=== PATIENT | male | born 1990 | race Caucasian/White ===

== ENCOUNTER 2017-09-08 13:15 | Emergency (ER) | payer BC ==
[~2017-09-08] VITALS: Ht 175.3 cm; Wt 84.0 kg
[2017-09-08] MEDS ORDERED: ONDANSETRON HCL 4MG/2ML VIAL IV STA (14:15)
[2017-09-08] MEDS ORDERED: SODIUM CHLORIDE 0.9% 1,000 ML IV ONE (14:15)
[2017-09-08] MEDS ORDERED: KETOROLAC 30MG/ML VIAL IV STA (14:15)
[2017-09-08] MEDS ORDERED: KETOROLAC 30MG/ML VIAL ONE (14:25)
[2017-09-08 14:34] LABS: BASOPHILS % 0.1 % (0.0-2.0); EOSINOPHILS % 0.4 % (0.0-5.0); HEMATOCRIT. 44.4 % (42.0-52.0); HEMOGLOBIN. 15.2 g/dL (14.0-18.0); MEAN CORPUSCULAR HEMOGLOBIN 28.3 pg (28.0-32.0); MEAN CORPUSCULAR VOLUME 82.6 fL (80.0-94.0); MEAN PLATELET VOLUME 7.8 fl (7.4-10.4); MONOCYTES % 4.8 % (2.0-8.0); NEUTROPHILS % 85.7 % (40.0-76.0); PLATELET 273 x1000/uL (130-400); RED BLOOD CELL COUNT 5.38 mill/uL (4.7-6.1); RED CELL DISTRIBUTION WIDTH 12.7 % (11.6-14.6)
[2017-09-08 14:41] LABS: INR 1.1; PROTHROMBIN TIME 11.2 sec (9.4-11.6)
[2017-09-08 14:42] LABS: CHLORIDE 104 mEq/L (98-107)
[2017-09-08 15:04] LABS: CLARITY URINE CLEAR (CLEAR); COLOR URINE YELLOW (YELLOW); KETONES URINE 3+ (NEGATIVE); LEUKOCYTE ESTERASE URINE NEGATIVE (NEGATIVE); NITRITE URINE NEGATIVE (NEGATIVE); OCCULT BLOOD URINE 2+ (NEGATIVE); PH URINE 8.5 (4.5-8.0); PROTEIN URINE 1+ (NEGATIVE); SPECIFIC GRAVITY URINE 1.029 (1.005-1.030); UROBILINOGEN URINE 0.2 E.U./dL (0.2-1.0)
[2017-09-08] MEDS ORDERED: LIDOCAINE HCL 1% 20ML VIAL (Pyxis) INJ INFIL ONE (16:15)
[2017-09-08] MEDS ORDERED: CEFTRIAXONE SODIUM 250 MG/VIAL IM ONE (16:15)
[2017-09-08] MEDS ORDERED: AZITHROMYCIN 500 MG TABLET PO ONE (16:15)
[2017-09-08] MEDS ORDERED: LIDOCAINE HCL/PF 1% 10 MG/ML 5ML VIAL IJ ONE (16:30)
[2017-09-08 16:49] VITALS: BP 115/59
== END 2017-09-08 16:52 | disposition home or self-care (01) ==
LOC: ER 13:40
DX: N30.90 Cystitis, unspecified without hematuria (principal); F12.10 Cannabis abuse, uncomplicated
CPT/HCPCS: 36415; 74176; 80053; 81003; 83690; 85025; 85610; 96361; 96372; 96374; 96375; 99285; J0696; J1885; J2405; J3490; J7030; Z7610